=== PATIENT | male | born 1985 | race American Indian/Alaskan Native ===

== ENCOUNTER 2016-10-19 13:00 | Emergency (ER) | payer SELFPAY ==
[2016-10-19 13:20] VITALS: BP 134/94
[2016-10-19] MEDS ORDERED: BOOSTRIX IM ONE (13:20)
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
[2016-10-19] MEDS ORDERED: ATIVAN IM PRN (13:48)
[2016-10-19] MEDS ORDERED: BENADRYL IM PRN (13:48)
[2016-10-19] MEDS ORDERED: HALDOL IM PRN (13:48)
[2016-10-19 13:57] LABS: Blood Urea Nitrogen 9 mg/dL (9-20); Calcium 8.7 mg/dL (8.4-10.2); Carbon Dioxide 19 mmol/L (22-30); Chloride 101.9 mmol/L (98-107); Glucose 94 mg/dL (75-100); Sodium 138 mmol/L (137-145)
[2016-10-19 14:03] LABS: Anion Gap 22 mmol/L; Potassium 5.2 mmol/L (3.6-5.0)
[2016-10-19 14:09] LABS: Hematocrit 37.6 % (35.5-45.6); Hemoglobin 12.4 gm/dl (11.8-15.2); Mean Corpuscular HGB Conc 33 % (32-34); Mean Corpuscular Hemoglobin 29 pg (28-32); Mean Corpuscular Volume 89 fl (84-94); Platelet Count 174 K/mm3 (140-440); Red Blood Count 4.22 M/mm3 (3.65-5.03); Red Cell Distribution Width 12.8 % (13.2-15.2); White Blood Count 7.4 K/mm3 (4.5-11.0)
[2016-10-19 15:41] LABS: Anisocytosis 1+; Basophils % (Manual) 0 % (0.0-1.8); Blastocytes % (Manual) 0 %
[2016-10-19 15:42] LABS: Large Platelets 1+; Ovalocytes Few
[2016-10-19 15:43] LABS: Diff Status Complete; Platelet Estimate Consistent w Auto
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
[2016-10-19] MEDS ORDERED: VITAMIN B-1 100 MG, FOLVITE 1 MG, INFUVITE 10 ML, MAGNESIUM SULFATE 2 GM in NACL 0.9% 1... IV ONE (17:14)
== END 2016-10-19 22:06 | disposition home or self-care (01) ==
LOC: ED 13:00 → EEVIPCON 13:00 → ED 22:06
DX: S09.90XA Unspecified injury of head, initial encounter (principal); S00.83XA Contusion of other part of head, initial encounter; F10.120 Alcohol abuse with intoxication, uncomplicated; J45.909 Unspecified asthma, uncomplicated; F17.200 Nicotine dependence, unspecified, uncomplicated; Y08.89XA Assault by other specified means, initial encounter; Y93.89 Activity, other specified; Y92.89 Other specified places as the place of occurrence of the external cause; Y99.8 Other external cause status
CPT/HCPCS: 36415; 70450; 70486; 72125; 80048; 85007; 85025; 96365; 96366; 99284; G0480; J1200; J1630; J2060; J3411; J3475; J7030; 80320

== ENCOUNTER 2017-12-20 12:02 | Emergency (ER) | payer OTHER ==
[2017-12-20 13:26] LABS: Bilirubin,Urine NEG (Negative); Color,Urine Yellow (Yellow)
[2017-12-20 13:27] LABS: Alanine Aminotransferase 11 units/L (7-56); Albumin 4.5 g/dL (3.9-5); BUN/Creatinine Ratio 9; Blood Urea Nitrogen 10 mg/dL (9-20); Calcium 9.1 mg/dL (8.4-10.2); Eosinophils # (Auto) 0.1 K/mm3 (0.0-0.4); Eosinophils % (Auto) 1.4 % (0.0-4.3); Hematocrit 36.4 % (35.5-45.6); Hemoglobin 12.1 gm/dl (11.8-15.2); Hemolysis Index 0; Lymphocytes # (Auto) 1.7 K/mm3 (1.2-5.4); Lymphocytes % (Auto) 32.8 % (13.4-35.0); Mean Corpuscular HGB Conc 33 % (32-34); Mean Corpuscular Hemoglobin 29 pg (28-32); Mean Corpuscular Volume 89 fl (84-94); Monocytes # (Auto) 0.5 K/mm3 (0.0-0.8); Monocytes % (Auto) 9.7 % (0.0-7.3); Platelet Count 157 K/mm3 (140-440); Red Blood Count 4.12 M/mm3 (3.65-5.03); Red Cell Distribution Width 11.9 % (13.2-15.2)
[2017-12-20 13:27] LABS: Blood,Urine NEG (Negative); Urobilinogen,Urine < 2.0 mg/dL (<2.0); WBC,Urine < 1.0 /HPF (0.0-6.0)
--- NOTE | 2017-12-20 15:38 | Emergency Department Report ---
Chief Complaint: Abdominal Pain Stated Complaint: ABDOMINAL PAIN Time Seen by Provider: 12/20/17 15:36 - HPI History of Present Illness: 32 year-old male presents to emergency department with complaint of left lower quadrant abdominal pain that has been going on for "a while." It seems to worsen over the past few days and during this time he had some mild diarrhea. He says that his stomach was "rumbling" 4 hours after he finishes eating. He denies any fever, nausea, vomiting, dysuria, discharge, pain in the scrotum, problems with bowel movements. He has not taken anything for her symptoms prior to presentation. He has a history of some borderline hypertension and asthma. He has a primary care physician through his work. No recent travel or sick contacts at home. - ROS Review of Systems: Positive for abdominal pain and diarrhea Negative for fever, back pain, dysuria, discharge, testicular pain - Exam Vital Signs: Vital Signs 12/20/17 12:28 Temperature 97.9 F Pulse Rate 72 Respiratory 16 Rate Blood Pressure 136/82 O2 Sat by Pulse 98 Oximetry Physical Exam: There is some reproducible mild tenderness to palpation to the left lower quadrant of the abdomen. Heart and lungs sounds are normal in auscultation. He is awake and alert in no acute distress. MSE screening note: Focused history and physical exam performed. Due to findings the following was ordered: The patient has already had a CBC, CMP and urinalysis that are unremarkable. He will have a 2 view x-ray of the abdomen. ED Medical Decision Making - Lab Data Result diagrams: 12/20/17 12:45 12/20/17 12:45 ED Disposition for MSE Condition: Stable Referrals: PRIMARY MD YARELY [Primary Care Provider] - 3-5 Days
--- NOTE | 2017-12-20 16:35 | XRay Report ---
FINAL REPORT EXAM: XR ABDOMEN 2V HISTORY: Abd pain TECHNIQUE: Supine and upright abdomen PRIORS: None. FINDINGS: Moderate amount of stool and gas present within the colon. No evidence of colonic or small bowel dilatation. No signs of free air. No abnormal calcifications are identified. IMPRESSION: Nonobstructive bowel gas pattern. No acute abnormality seen.
--- NOTE | 2017-12-20 16:47 | Emergency Department Report ---
Vomiting/Diarrhea - HPI Chief Complaint: Abdominal Pain Stated Complaint: ABDOMINAL PAIN Time Seen by Provider: 12/20/17 15:36 Duration: 2 Days Severity: mild Nausea/Vomiting Severity: None Diarrhea Severity: Mild Pain Location: Generalized Pain Severity: Mild Symptoms: Yes Watery Diarrhea, Yes Able to Tolerate Fluids, No Bloody diarrhea, No Fever, No Recent Unusual Foods, No Recent Untreated Water, No Recent use of Antibiotics, No Family w/ Similar Symptoms, No Contacts w/ Similar Symptoms, No Rash, No Hematuria, No Recent URI Symptoms Other History: 32 year-old male presents to emergency department with complaint of left lower quadrant abdominal pain that has been going on for "a while." It seems to worsen over the past few days and during this time he had some mild diarrhea. He says that his stomach was "rumbling" 4 hours after he finishes eating. He denies any fever, nausea, vomiting, dysuria , discharge, pain in the scrotum, problems with bowel movements. He has not taken anything for her symptoms prior to presentation. He has a history of some borderline hypertension and asthma. He has a primary care physician through his work. No recent travel or sick contacts at home. ED Review of Systems ROS: Stated complaint: ABDOMINAL PAIN Other details as noted in HPI Constitutional: denies: chills, fever Respiratory: denies: cough, shortness of breath, wheezing Cardiovascular: denies: chest pain, palpitations Gastrointestinal: abdominal pain (generalized abdominal pain), diarrhea. denies : nausea, vomiting Genitourinary: denies: urgency, dysuria, frequency, hematuria, discharge Neurological: denies: headache, weakness, paresthesias Psychiatric: denies: anxiety, depression ED Past Medical Hx - Past Medical History Previous Medical History?: Yes Hx Hypertension: Yes (borderline, doesn't take medication for it) Hx Asthma: Yes Additional medical history: KRISTIN - Surgical History Past Surgical History?: No Additional Surgical History: KRISTIN - Social History Smoking Status: Current Every Day Smoker Substance Use Type: Alcohol - Medications Home Medications: Home Medications Medication Instructions Recorded Confirmed Last Taken Type Albuterol Sulfate [Ventolin HFA] 2 puff IH Q4H PRN #1 hfa.aer.ad 08/22/16 Unknown Rx Azithromycin [Zithromax Z-NICOLE] 250 mg PO DAILY #6 tab 08/22/16 10/19/16 Unknown Rx guaiFENesin/CODEINE [Robitussin AC] 10 ml PO BID PRN #140 oral.liqd 08/22/16 Unknown Rx predniSONE [Deltasone] 50 mg PO QDAY #5 tab 08/22/16 10/19/16 Unknown Rx Loperamide [Imodium] 2 mg PO Q2HR #10 capsule 12/20/17 Unknown Rx Vomiting Diarrhea Exam - Exam General: Vital signs noted. No distress. Alert and acting appropriately. HEENT: Yes Moist Mucous Membranes, No Pharyngeal Erythema, No Pharyngeal Exudates, No Rhinorrhea, No Conjuctival Injection, No Frontal Tenderness, No Maxillary Tenderness Neck: No Adenopathy, No Rigidity Lungs: Yes Clear Lung Sounds, Yes Good Air Exchange, No Wheezes, No Stridor, No Cough, No Nasal Flaring, No Retractions, No Use of Accessory Muscles Heart exam: Regular: Yes, Murmur: No, Tachycardia: No Abdomen: Tenderness: No, Peritoneal Signs: No, Distention: No, Hyperactive Bowel sounds: No Skin exam: Rash: No, Edema: No, Normal turgor: Yes Neurologic: Alert and oriented, no deficits. Musculoskeletal: Unremarkable. ED Course Vital Signs 12/20/17 12:28 Temperature 97.9 F Pulse Rate 72 Respiratory 16 Rate Blood Pressure 136/82 O2 Sat by Pulse 98 Oximetry ED Medical Decision Making - Lab Data Result diagrams: 12/20/17 12:45 12/20/17 12:45 - Medical Decision Making This is a 32 y.o. male that presents with abdominal pain and diarrhea for 2 days. Patient is stable and was examined by me. Vitals normal. Obtained CMP, CBC , UA, and x-ray of abdomen. All unremarkable. Patient reports symptoms have resolved. Plan to start indium gastroenteritis and supportive care. Discussed plan with patient and agreed to plan. No further questions noted by the patient. Discharged home in stable condition. Follow up with PCP at [facility] in 2-3 days. Critical care attestation.: If time is entered above; I have spent that time in minutes in the direct care of this critically ill patient, excluding procedure time. ED Disposition Clinical Impression: Abdominal pain in male, Gastroenteritis Disposition: DC- TO HOME OR SELFCARE Is pt being admited?: No Does the pt Need Aspirin: No Condition: Stable Instructions: Gastroenteritis (ED), Acute Diarrhea (ED) Additional Instructions: Frequent hand washing is important to reduce spread. Prompt disinfection of contaminated surfaces with household chlorine bleach- based software development manager and washing of soiled clothing and bedding should be advised. If food or water is thought to be contaminated, it should be avoided. Increase fluid intake. Drinks high in sugars such as carbonated soft drinks, fruit juice, and highly sugared liquids should be avoided. Prescriptions: Loperamide [Imodium] 2 mg PO Q2HR #10 capsule Referrals: [facility] [Provider Group] - 3-5 Days Time of Disposition: 16:49 Print Language: VIET[place]
[2017-12-20 16:59] VITALS: BP 130/75
== END 2017-12-20 16:58 | disposition home or self-care (01) ==
LOC: ED 12:02
DX: K52.9 Noninfective gastroenteritis and colitis, unspecified (principal); I10 Essential (primary) hypertension; F17.200 Nicotine dependence, unspecified, uncomplicated
CPT/HCPCS: 36415; 74019; 80053; 81001; 85025; 99283

== ENCOUNTER 2018-01-18 18:53 | Emergency (ER) | payer OTHER ==
[2018-01-18 19:43] VITALS: BP 149/92
[2018-01-18 20:19] LABS: Bilirubin,Urine NEG (Negative); Blood,Urine NEG (Negative); Color,Urine Yellow (Yellow); Protein,Urine <15 mg/dL mg/dL (Negative); WBC,Urine < 1.0 /HPF (0.0-6.0)
== END 2018-01-18 20:20 | disposition left against medical advice (07) ==
LOC: ED 18:53
DX: R30.0 Dysuria (principal); Z53.21 Procedure and treatment not carried out due to patient leaving prior to being seen by health care provider
CPT/HCPCS: 81001